=== PATIENT | male | born 1995 | race Caucasian/White ===

== ENCOUNTER 2020-04-23 20:23 | Emergency (ER) | payer SELFPAY ==
--- NOTE | 2020-04-23 | XR_ITS ---
EXAMINATION: RIGHT HAND 3 VIEWS CLINICAL INFORMATION: Pain. COMPARISON: None. TECHNIQUE: PA, lateral, oblique views of the right hand were obtained. FINDINGS: There are no fractures or dislocations. There is no significant soft tissue swelling. XR/XR hand RT min 3V IMPRESSION: Unremarkable right hand radiographs.
[2020-04-23 21:42] VITALS: BP 116/76; PULSE 82; RESP 16; TEMP 36.9; O2SAT 98; BMI 22.3
[2020-04-24 00:52] VITALS: BP 114/70; PULSE 79; RESP 16; TEMP 36.8; O2SAT 99
[2020-04-24 02:00] VITALS: RESP 15
--- NOTE | 2020-04-24 02:35 | ED.EXTPRO ---
HPI - Extremity Problem General Chief complaint: Extremity Injury, Upper Stated complaint: Fall/Hand pain Time Seen by Provider: 04/24/20 01:28 Source: patient Mode of arrival: ambulatory History of Present Illness HPI Narrative: 44-year-old male who states that he will follow up in a home catching his fall with the right hand and states that the 3rd through 5th digits were ?bent backwards last sideways? and he is now having pain. Otherwise, he denies any numbness/tingling/weakness to the fingers. Related Data Previous Rx's Medication Instructions Recorded ketorolac 10 mg PO TID PRN 5 Days #20 tab 04/24/20 Allergies Allergy/AdvReac Type Severity Reaction Status Date / Time Iodinated Contrast Media Allergy Severe ANAPHYLAXIS Unverified 01/05/20 18:51 [IV CONTRAST] Review of Systems Review of Systems: Pertinent positives and negatives as stated in HPI 10 point review systems otherwise negative. [facility] Past Medical History Source: nursing notes reviewed Medical History No known health problems Social History Social History Advance Directives: No Physical Exam Vital Signs: Vital Signs: Last Vital Signs Temp 98.3 F 04/24/20 00:52 Pulse 79 04/24/20 00:52 Resp 16 04/24/20 00:52 BP 114/70 04/24/20 00:52 Pulse Ox 99 04/24/20 00:52 Body Mass Index 22.3 VITAL SIGNS: Reviewed. GENERAL: Well developed, well nourished, in no acute distress. NOSE: Nares patent bilateral OROPHARYNX: no oral lesions noted, posterior pharynx clear NECK: Supple, no adenopathy LUNGS: Normal breath sounds. No adventitious sounds or accessory muscle use. SpO2<99> CARDIOVASCULAR: Regular rate and rhythm without noted murmurs, no JVD or lower extremity edema. ABDOMEN: Soft, non-tender, non-distended with bowel sounds. No rigidity. No guarding. No palpable masses or hernias noted RIGHT HAND: Evaluation of 3rd through 5th digits is negative for swelling, erythema, deformity, with good capillary refill less than 3 seconds, and otherwise neurovascularly intact. Although there is discomfort on range of motion it is noted that there is full range of motion NEUROLOGIC: Alert and oriented x 4. Course Course Course Narrative: This is a 24-year-old male with history and clinical presentation consistent with sprain of the right 3rd-5 digits at the MCP of the right hand without radiographic evidence of fracture or dislocation. Patient was treated with combination analgesics with good results and discharged home in stable condition. Discharge Plan Discharge Clinical Impression: Finger sprain Qualifiers: Encounter type: initial encounter Finger: little finger Sprain of finger site: metacarpophalangeal joint Laterality: right Qualified Code(s): S63.656A - Sprain of metacarpophalangeal joint of right little finger, initial encounter Patient Disposition: Home, Self-Care Instructions: Finger Sprain (ED) Additional Instructions: 1. Tylenol 1000 mg, orally, every 6 hours as needed for pain control. Please do not exceed 4000 mg within 24 hours. 2. Continue to gently range of motion all 3 of your fingers of the right hand to reduce the likelihood of them becoming stiff. 3. Please follow-up with your primary care provider. Prescriptions: New ketorolac 10 mg tablet 10 mg PO TID PRN (Reason: pain) 5 Days Qty: 20 RF: 0 Referrals: Physician,None [Primary Care Provider] - 2 days (Re-evaluation outpatient management.)
== END 2020-04-24 03:35 | disposition home or self-care (01) ==
PROVIDERS: Emergency Provider Student in an Organized Health Care Education/Training Program
DX: S63.612A Unspecified sprain of right middle finger, initial encounter (principal); S63.614A Unspecified sprain of right ring finger, initial encounter; S63.616A Unspecified sprain of right little finger, initial encounter; X50.1XXA Overexertion from prolonged static or awkward postures, initial encounter; Y93.89 Activity, other specified; Y92.018 Other place in single-family (private) house as the place of occurrence of the external cause; Y99.9 Unspecified external cause status
CPT/HCPCS: 73130; 99283; 99284

== ENCOUNTER 2022-01-12 00:43 | Emergency (ER) | payer MEDICAID, SELFPAY ==
[2022-01-12 01:09] VITALS: BP 141/78; PULSE 100; RESP 18; TEMP 37; O2SAT 100; BMI 23.3
[2022-01-12 04:58] VITALS: BP 134/85; PULSE 85; RESP 18; TEMP 36.8; O2SAT 98
--- NOTE | 2022-01-12 09:36 | ED_ITS ---
HPI - General Adult General Chief complaint: General Medical Stated complaint: ?sinus infection; nasal congestion Time Seen by Provider: 01/12/22 09:11 Source: patient Mode of arrival: ambulatory History of Present Illness HPI narrative: 26-year-old male with no significant past medical history presenting to the ED complaining of sinus pressure x1 week greatest to left side with pressure behind eyes and left ear discomfort. Reports rhinorrhea. Denies fever, chills, drainage from ears, difficulty swallowing, cough, SOB Onset (ago): week(s) Related Data Previous Rx's Medication Instructions Recorded ketorolac 10 mg tablet 10 mg PO TID PRN pain 5 days #20 04/24/20 tabs amoxicillin 875 mg-potassium 1 tab PO BID 7 days #14 tabs 01/12/22 clavulanate 125 mg tablet fluticasone propionate 50 2 spray intranasal DAILY #16 grams 01/12/22 mcg/actuation nasal spray,suspension (Flonase Allergy Relief) Allergies Allergy/AdvReac Type Severity Reaction Status Date / Time Iodinated Contrast Media Allergy Severe ANAPHYLAXIS Verified 04/24/20 03:16 [IV CONTRAST] Review of Systems Review of Systems: Constitutional: No Fever, No Chills ENT/Mouth: No Ear Pain, + Nasal Congestion, + Sinus Pain, No Hoarseness, No sore throat, + Rhinorrhea, No Swallowing Difficulty Cardiovascular: No Chest Pain, No SOB Respiratory: No Cough, No Sputum, No Wheezing Gastrointestinal: No Nausea, No Vomiting, No Diarrhea, No Constipation, No Abdominal pain Genitourinary: No Dysuria, No Urgency, No Flank Pain Musculoskeletal: No joint pain, No Myalgias, No Joint Swelling Skin: No Skin Lesions, No rash Neuro: No Weakness Yes all other systems are reviewed and are negative Constitutional: Constitutional: Reports as per [facility] Past Medical History Attestation statement: The following information was validated with the patient. Medical History No known health problems Social History Social History Alcohol intake: unknown Advance Directives: No Advance Directives Information Provided: No Physical Exam ED Vital Signs: Vital Signs - 24 hr 01/12/22 01:09 01/12/22 04:58 Temperature 98.6 F 98.2 F Pulse Rate 100 85 Respiratory Rate 18 18 Blood Pressure 141/78 H 134/85 Pulse Oximetry 100 98 Oxygen Delivery Method Room Air Room Air BMI result Body Mass Index 23.3 Const General: cooperative, healthy appearing and no acute distress Orientation/consciousness: patient oriented x3 Limitations: no limitations HENMT Head: Yes normal to inspection and Yes atraumatic Ears: hearing grossly normal bilaterally, external ears normal, TM's normal bilaterally and TM abnormal obstructed by cerumen on the left (partially) General nose exam: Normal external nose present Face and sinus: Yes normal facial exam and Yes sinus tenderness (Maxillary and ethmoid) Mouth: Normal oral and palatal mucosa present Throat: Yes posterior oropharynx normal, Yes tonsils normal, No uvula midline, No peritonsillar mass, No uvula laterally displaced and No uvular edema Eyes General: appearance normal, both eyes and all related structures EOM: EOMs intact bilaterally Neck Neck: Yes normal visual inspection and Yes no meningeal signs Resp Effort & Inspection: normal respiratory effort and no respiratory distress Auscultation: clear to auscultation bilaterally, no crackles, no rales, no rhonchi and no wheezes Cardio Rate: regular rate Heart sounds: S1 normal heart sound present and S2 normal heart sound present GI Inspection: Yes normal to inspection Skin Rashes: no rashes Wounds: no wounds Neuro General: patient oriented x3, tone normal and no meningeal signs Gait exam (Neuro): Normal gait present Extrem General: Yes normal to inspection Medical Decision Making MDM Narrative Medical decision making narrative: 26-year-old male with no significant past medical history presenting to the ED complaining of sinus pressure x1 week greatest to left side with pressure behind eyes and left ear discomfort. On exam vital signs stable, NAD, nontoxic appearing, concern for sinusitis/viral illness Medical Records Medical records reviewed: Yes I reviewed the patient's medical records. Lab Data Lab results reviewed: Yes I reviewed the patient's lab results. Discharge Plan Discharge Clinical Impression: Sinusitis Patient Disposition: Home, Self-Care Instructions: Sinusitis (ED) Additional Instructions: You have sinusitis. Augmentin is an antibiotic please take as prescribed. Additionally Flonase is a nasal decongestion. Take Tylenol Motrin as needed. Rest. Stay hydrated. Follow up with her doctor, return to the ED if symptoms persist or worsen Prescriptions: New fluticasone propionate [Flonase Allergy Relief] 50 mcg/actuation spray,suspension 2 spray intranasal DAILY Qty: 16 0RF Rx Instructions: administer into each nostril amoxicillin-pot clavulanate 875-125 mg tablet 1 tab PO BID 7 Days Qty: 14 0RF No Action ketorolac 10 mg tablet 10 mg PO TID PRN (Reason: pain) 5 Days Qty: 20 0RF Rx Instructions: Patient received IM Toradol in the emergency room. Referrals: Physician,Unknown J [Primary Care Provider] -
[2022-01-12 10:29] LABS: IDNOW Serial# 55D5AD1C
[2022-01-12 10:30] LABS: COVID-19 Test Negative (Negative)
== END 2022-01-12 10:09 | disposition home or self-care (01) ==
PROVIDERS: Physician Assistant; Emergency Provider Internal Medicine
DX: J32.9 Chronic sinusitis, unspecified (principal); Z20.822 Contact with and (suspected) exposure to COVID-19; Z79.899 Other long term (current) drug therapy
CPT/HCPCS: 87635; 99283

== ENCOUNTER 2022-02-24 12:59 | Emergency (ER) | payer MEDICAID, SELFPAY ==
--- NOTE | ~2022-02-24 | XR_ITS ---
EXAMINATION: XR FINGER, RIGHT CLINICAL INFORMATION: Crushed thumb. COMPARISON: None TECHNIQUE: 3 views of the right thumb. FINDINGS: The bones and soft tissues are normal. No fracture. Alignment is anatomic. Joint spaces are maintained. XR/XR finger RT min 2V IMPRESSION: No acute abnormality in the first digit.
[2022-02-24 13:12] VITALS: BP 125/80; PULSE 96; RESP 18; TEMP 36.7; O2SAT 99; BMI 25.7
--- NOTE | 2022-02-24 13:12 | ED_ITS ---
HPI - Extremity Problem General Chief complaint: Extremity Problem Stated complaint: r hand crushed at work Related Data Previous Rx's Medication Instructions Recorded ketorolac 10 mg tablet 10 mg PO TID PRN pain 5 days #20 04/24/20 tabs amoxicillin 875 mg-potassium 1 tab PO BID 7 days #14 tabs 01/12/22 clavulanate 125 mg tablet fluticasone propionate 50 2 spray intranasal DAILY #16 grams 01/12/22 mcg/actuation nasal spray,suspension (Flonase Allergy Relief) Allergies Allergy/AdvReac Type Severity Reaction Status Date / Time Iodinated Contrast Media Allergy Severe ANAPHYLAXIS Verified 04/24/20 03:16 [IV CONTRAST] [facility] Past Medical History Medical History No known health problems Social History Social History Alcohol intake: unknown Advance Directives: No Advance Directives Information Provided: No Physical Exam Vital Signs: Vital Signs: Last Vital Signs Temp 98.1 F 02/24/22 13:12 Pulse 96 02/24/22 13:12 Resp 18 02/24/22 13:12 BP 125/80 02/24/22 13:12 Pulse Ox 99 02/24/22 13:12 O2 Del Method 02/24/22 13:12 BMI result Body Mass Index 25.7 Course Reevaluation(s) Reevaluation #1: Crushed his thumb between shelves at work. Neurovascular intact Time: 13:14 Discharge Plan Discharge Clinical Impression: Crush injury to thumb Patient Disposition: Elopement Prescriptions: No Action ketorolac 10 mg tablet 10 mg PO TID PRN (Reason: pain) 5 Days Qty: 20 0RF Rx Instructions: Patient received IM Toradol in the emergency room. fluticasone propionate [Flonase Allergy Relief] 50 mcg/actuation spray,suspension 2 spray intranasal DAILY Qty: 16 0RF Rx Instructions: administer into each nostril amoxicillin-pot clavulanate 875-125 mg tablet 1 tab PO BID 7 Days Qty: 14 0RF Discharge Date/Time: 02/24/22 19:30
--- NOTE | 2022-02-24 17:38 | PC.NURSE ---
ATTEMPTED TO CALL PATIENT INTO ED. NO ANSWER IN WR. ALREADY EVALUATED BY DR LOPEZ IN TRIAGE.
== END 2022-02-24 19:30 | disposition left against medical advice (07) ==
PROVIDERS: Emergency Provider Emergency Medicine
DX: S69.91XA Unspecified injury of right wrist, hand and finger(s), initial encounter (principal); W23.1XXA Caught, crushed, jammed, or pinched between stationary objects, initial encounter; Y93.89 Activity, other specified; Y92.511 Restaurant or cafe as the place of occurrence of the external cause; Y99.0 Civilian activity done for income or pay
CPT/HCPCS: 73140; 99281; 99283

== ENCOUNTER 2024-12-02 05:02 | Emergency (ER) | payer SELFPAY ==
[2024-12-02 05:09] VITALS: BP 111/65; PULSE 86; RESP 18; TEMP 36.8; O2SAT 96; BMI 25.7
[2024-12-02 06:13] LABS: Resp Syncy Virus RNA Qual PCR NEGATIVE (Negative); SARS COV2 PCR INHOUSE NEGATIVE (Negative)
[2024-12-02 07:25] VITALS: BP 128/73; PULSE 68; RESP 14; TEMP 36.2; O2SAT 98
--- NOTE | 2024-12-02 07:29 | ED.URI ---
HPI - URI/Sore Throat General Chief Complaint: Upper Respiratory Symptoms Stated Complaint: possible sinus infection Time Seen by Provider: 12/02/24 07:01 Source: patient Mode of arrival: ambulatory Limitations: no limitations History of Present Illness ED Provider: HPI Narrative: 29-year-old with nasal congestion for the past 2-3 months, uses tobacco, did not go to work today because of the discomfort feels like he has swelling of the face and ears and jaw no fevers or chills reported. Related Data Previous Rx's ?Medication ?Instructions ?Recorded ketorolac 10 mg tablet 10 mg PO TID PRN pain 5 days #20 04/24/20 tabs amoxicillin 875 mg-potassium 1 tab PO BID 7 days #14 tabs 01/12/22 clavulanate 125 mg tablet fluticasone propionate 50 2 spray intranasal DAILY #16 grams 01/12/22 mcg/actuation nasal spray,suspension (Flonase Allergy Relief) fluticasone propionate 50 1 spray intranasal BID #16 grams 12/02/24 mcg/actuation nasal spray,suspension (Flonase Allergy Relief) oxymetazoline 0.05 % nasal mist 2 spray intranasal Q12H PRN nasal 12/02/24 (Afrin (oxymetazoline)) congestion 3 days #15 mL Allergies Allergy/AdvReac Type Severity Reaction Status Date / Time Iodinated Contrast Media (IV Allergy Severe ANAPHYLAXIS Verified 04/24/20 03:16 CONTRAST) shellfish derived (shellfish) Allergy Itching Verified 12/02/24 05:10 egg (eggs) AdvReac Vomiting Verified 12/02/24 05:10 Review of Systems Constitutional: Constitutional: Reports as per HPI [facility] Past Medical History Medical History No known health problems Social History Social History Alcohol intake: unknown Advance Directives: No Advance Directives Information Provided: Yes Physical Exam Vital Signs: Vital Signs: Last Vital Signs Temp 98.6 F 12/02/24 07:44 Pulse 68 12/02/24 07:44 Resp 14 12/02/24 07:44 BP 128/73 12/02/24 07:44 Pulse Ox 98 12/02/24 07:44 O2 Del Method Room Air 12/02/24 07:44 BMI result Body Mass Index 25.7 Const: Other: Gen: ?Overall well-appearing patient HEENT: Boggy nasal mucosa, uvula midline, no TM irritation, no tenderness along the mastoid Neck: Supple, no LAD CV: RRR, no obvious murmurs appreciated Resp: ?No wheezing rales rhonchi no stridor moving air well Skin: Warm, dry, intact, Neuro: ?Alert and oriented x3, moving upper and lower extremities symmetrically, no obvious facial asymmetry noted Medical Decision Making Medical Decision Making [facility] Narrative: Physical examination is consistent with allergic sinusitis, discussed smoking cessation, see my discharge instructions Differential Diagnosis Differential Diagnoses: The differential diagnosis associated with the presentation includes (Bacterial sinusitis, facial cellulitis, mastoiditis, tonsillitis, viral syndrome, deep space infection of the neck) Lab Data [facility] Lab Attestation statement: I reviewed the patient's lab results. Labs: Lab Results 12/02/24 Range/Units 05:33 Influenza Type A (PCR) NEGATIVE (Negative) Influenza Type B (PCR) NEGATIVE (Negative) RSV RNA Qual (PCR) NEGATIVE (Negative) SARS-CoV-2 RNA (RT-PCR) NEGATIVE (Negative) Discharge Plan Discharge Clinical Impression: Allergic sinusitis Patient Disposition: Home, Self-Care Additional Instructions: As discussed start with both Afrin and Flonase, do not use Afrin for more than 2 days, in the meantime Flonase we will start working, you have evidence of allergic sinusitis, tobacco use or any other smoking will prolonged and worse in the symptoms. Next year consider taking Claritin or any other antihistamine in the beginning of the allergy season to prevent this. Prescriptions: New fluticasone propionate [Flonase Allergy Relief] 50 mcg/actuation spray,suspension 1 spray intranasal BID Qty: 16 0RF Rx Instructions: administer into each nostril Afrin (oxymetazoline) 0.05 % mist 2 spray intranasal Q12H PRN (Reason: nasal congestion) 3 Days Qty: 15 0RF No Action ketorolac 10 mg tablet 10 mg PO TID PRN (Reason: pain) 5 Days Qty: 20 0RF Rx Instructions: Patient received IM Toradol in the emergency room. fluticasone propionate [Flonase Allergy Relief] 50 mcg/actuation spray,suspension 2 spray intranasal DAILY Qty: 16 0RF Rx Instructions: administer into each nostril amoxicillin-pot clavulanate 875-125 mg tablet 1 tab PO BID 7 Days Qty: 14 0RF Stand Alone Forms: Work/School Release Interventions: ED Discharge Assessment Last Done: 12/02/24 07:44 Discharge Date/Time: 12/02/24 07:45 Print Language: Croatian
[2024-12-02 07:44] VITALS: BP 128/73; PULSE 68; RESP 14; TEMP 37; O2SAT 98
== END 2024-12-02 07:45 | disposition home or self-care (01) ==
PROVIDERS: Emergency Provider Emergency Medicine
DX: J30.9 Allergic rhinitis, unspecified (principal); R09.81 Nasal congestion; Z03.818 Encounter for observation for suspected exposure to other biological agents ruled out
CPT/HCPCS: 87637; 99283

== ENCOUNTER 2024-12-29 20:02 | Emergency (ER) | payer SELFPAY ==
[2024-12-29 20:05] VITALS: BP 138/88; PULSE 91; RESP 16; TEMP 36.6; O2SAT 99; BMI 26.6
[2024-12-29 20:38] LABS: IDNOW Serial# 6674DD1D
[2024-12-29 20:39] LABS: COVID-19 Test Negative (Negative)
--- NOTE | 2024-12-29 21:02 | ED_ITS ---
HPI - URI/Sore Throat General Chief Complaint: Upper Respiratory Symptoms Stated Complaint: Sinus Infection (ongoing) Time Seen by Provider: 12/29/24 21:02 Source: patient Mode of arrival: ambulatory Limitations: no limitations History of Present Illness ED Provider: Jessy Frey PA-C HPI Narrative: Seeks medical attention today for evaluation of sinus congestion been going on for the last 2 months. He did recently seen urgent care and they gave him an antibiotic however patient reports dull no difference he still has continued facial pressure he does not feel this is allergies. He reports no known sick contacts fevers no GI symptoms or shortness of breath. He is not taking any qkrv-yte-ptegpav medicine other than allergy medicine for which he had also states does not feel like it is helping. Related Data Previous Rx's ?Medication ?Instructions ?Recorded ketorolac 10 mg tablet 10 mg PO TID PRN pain 5 days #20 04/24/20 tabs amoxicillin 875 mg-potassium 1 tab PO BID 7 days #14 t abs 01/12/22 clavulanate 125 mg tablet fluticasone propionate 50 2 spray intranasal DAILY #16 grams 01/12/22 mcg/actuation nasal spray,suspension (Flonase Allergy Relief) fluticasone propionate 50 1 spray intranasal BID #16 g deborah 12/02/24 mcg/actuation nasal spray,suspension (Flonase Allergy Relief) oxymetazoline 0.05 % nasal mist 2 spray intranasal Q12 H PRN nasal 12/02/24 (Afrin (oxymetazoline)) congestion 3 days #15 mL ipratropium bromide 21 mcg (0.03 2 spray intranasal BI D #30 mL 12/29/24 %) nasal spray Allergies Allergy/AdvReac Type Severity Reaction Status Date / Time Iodinated Contrast Media (IV Allergy Severe ANAPHYLAXIS Verified 12/29/24 20:08 CONTRAST) shellfish derived (shellfish) Allergy Itching Verified 12/29/24 20:08 egg (eggs) AdvReac Vomiting Verified 12/29/24 20:08 Review of Systems Review of Systems: Yes all other systems are reviewed and are negative [facility] Past Medical History Attestation statement: The following information was validated with the patient. Source: old records reviewed and nursing notes reviewed Medical History No known health problems Social History Social History Alcohol intake: unknown Advance Directives: No Advance Directives Information Provided: Yes Physical Exam Exam: Exam: General: Appears in no acute distress, appears well nourished body habitus is normal, appears stated age. No septic or ill-appearing. Vitals reviewed normal, PMH/Social and Surgical hx reviewed including allergies and current medications. - reviewed for prior visits here Head: Normocephalic, no obvious trauma or skin lesions noted. Eyes: EOMI, conjunctiva and sclera clear ENMT: moist oral mucosa, uvula is midline no trismus, boggy pale nasal mucosa bilaterally face clear discharge left TM with advanced serous OM no erythema hearing intact Neck: trachea midline, no lymphadenopathy Cardiovascular: peripheral perfusion normal, Regular heart rate, regular rhythm Respiratory: no respiratory distress, lungs clear Abdomen: nondistended Extremities: warm and moving without difficulty Psych: Cooperative Neuro: Alert and oriented. Vital Signs: Vital Signs: Last Vital Signs Temp 97.3 F 12/29/24 21:08 Pulse 78 12/29/24 21:08 Resp 16 12/29/24 21:08 BP 123/81 12/29/24 21:08 Pulse Ox 96 12/29/24 21:08 O2 Del Method Room Air 12/29/24 21:08 BMI result Body Mass Index 26.6 Medical Decision Making Medical Decision Making MDM Narrative: Well-appearing 29-year-old male here today for evaluation of chronic sinusitis. He recently finished antibiotic on exam he is well-appearing but clear evidence of allergic rhinitis. The patient presents with symptoms that do not suggest middle or external ear infection, strep throat, mononucleosis, tonsillitis, bacterial sinusitis, bronchitis, or pneumonia. Physical examination reveals no significant findings such as otalgia, erythema, exudate, lymphadenopathy, or abnormal lung sounds. They have reassuring vitals and are maintaining their fluids. Imaging is not indicated at this time, nor are oral antibiotics, oral steroids, or breathing treatments. The patient is stable, and either the patient or accompanying family/friend was provided with strict return precautions and ED warning signs. Edzw-sbq-jlwgked medications and adequate hydration were recommended for symptom management. The patient agreed with the treatment plan and was discharged home in stable condition. Differential Diagnosis Differential Diagnoses: The differential diagnosis associated with the presentation includes Admission/Observation Consideration of admission/observation: Escalation of care including admission/observation considered Patient would have been admitted to the hospital had his work up had any findings where hospital admission was appropriate and his clinical presentation warranted hospital admission. Lab Data MDM Lab Attestation statement: I reviewed the patient's lab results. Labs: Lab Results 12/29/24 Range/Units 20:17 COVID-19 ([place]) Negative (Negative) COVID-19 Clin Com See Note Prescription Management I considered prescription management with: Antibiotic No evidence of a respiratory bacterial infection not indicated already had Social Determinants Patient?s care significantly limited by Social Determinants of Health including: Other Social Determinant of Health Discharge Plan Discharge Clinical Impression: Allergic rhinitis, Chronic serous otitis media of left ear Patient Disposition: Home, Self-Care Instructions: Fluid In The Ear (Serous Otitis Media) (ED) Additional Instructions: Your history and physical consistent with allergic rhinitis causing postnasal drip, cough and congestion versus viral or bacterial infection.? This is evident by pale nasal and oral mucosa along with frequent postnasal drip with runny/stuffy nose. You already took an antibiotic. It did not work as there is no evidence of bacterial infection. Medications to take: - If prescribed or directed to take, take Zyrtec as discussed.? This is an lxcf-sru-lgmptoh medication, if insurance does not cover this you can purchase this and take as discussed.? 10 milligrams in the morning and 10 mg at night until symptoms resolve. - If prescribed or directed to use, use Afrin as discussed.? This is an o zlf-qlw-aenchrg medication, if insurance does not cover this you can purchase this and take as discussed.? -If prescribed or directed to use, use Flonase as discussed. This is an jnwo-nbs-wjmfeay medication, if insurance does not cover this you can purchase this and take as discussed.? Use twice daily until symptoms resolve. -If prescribed use nasal ipratropium as prescribed.? This will reduce the secretions from nasal cavity causing postnasal drip leading to sore throat cough. Take steaming showers and steam up the bathroom to get moist air, hold head over boiling pot of water or use hot moist cloth applied to face 4-5 times a day breathing through the cloth to get moist area and tear nasal cavities and lungs. Prop head of bed up at least 30 degrees while sleeping at night Drink plenty of fluids and electrolytes May take decongestion as needed however monitor blood pressure as this can increase your blood pressure. RTC precautions discussed. Prescriptions: New ipratropium bromide 21 mcg (0.03 %) spray,non-aerosol 2 spray intranasal BID Qty: 30 0RF Rx Instructions: administer into each nostril No Action ketorolac 10 mg tablet 10 mg PO TID PRN (Reason: pain) 5 Days Qty: 20 0RF Rx Instructions: Patient received IM Toradol in the emergency room. fluticasone propionate [Flonase Allergy Relief] 50 mcg/actuation spray,suspension 2 spray intranasal DAILY Qty: 16 0RF Rx Instructions: administer into each nostril amoxicillin-pot clavulanate 875-125 mg tablet 1 tab PO BID 7 Days Qty: 14 0RF fluticasone propionate [Flonase Allergy Relief] 50 mcg/actuation spray,suspension 1 spray intranasal BID Qty: 16 0RF Rx Instructions: administer into each nostril Afrin (oxymetazoline) 0.05 % mist 2 spray intranasal Q12H PRN (Reason: nasal congestion) 3 Days Qty: 15 0RF Referrals: [facility] [Provider Group, Ear, Nose, Throat] Stand Alone Forms: Work/School Release Print Language: Telugu
[2024-12-29 21:08] VITALS: BP 123/81; PULSE 78; RESP 16; TEMP 36.3; O2SAT 96
[2024-12-29 21:28] VITALS: BP 123/81; PULSE 78; RESP 16; TEMP 36.3; O2SAT 96
== END 2024-12-29 21:31 | disposition home or self-care (01) ==
PROVIDERS: Emergency Provider Emergency Medicine
DX: J30.9 Allergic rhinitis, unspecified (principal); H66.92 Otitis media, unspecified, left ear; Z11.52 Encounter for screening for COVID-19; Z03.818 Encounter for observation for suspected exposure to other biological agents ruled out
CPT/HCPCS: 87635; 99282; 99283